=== PATIENT | female | born 1990 | race Hispanic/Latino ===

== ENCOUNTER 2021-12-23 03:15 | Emergency (ER) | payer MEDICAID ==
[2021-12-23] VITALS (10 sets, daily range): BP systolic 97–120; BP diastolic 58–78
[~2021-12-23] VITALS: Ht 154.9 cm; Wt 100.0 kg
[2021-12-23 04:06] LABS: HEMATOCRIT 33.1 % (37.0-47.0); HEMOGLOBIN 11.2 g/dl (12.0-16.0); IMMATURE GRANULOCYTES 0.1 % (0.0-5.0); MEAN CELL VOLUME 97.4 fL CALC (80.0-100.0); MEAN CORPUSCULAR HGB 32.9 pG CALC (26.0-32.0); MEAN CORPUSCULAR HGB CONC 33.8 g/dL CAL (32.0-36.0); NEUT# 5.6 thou/uL (2.00-7.15); RED BLOOD COUNT 3.4 mill/uL (4.20-5.60); RED CELL DISTRI WIDTH 12.5 % (11.5-15.5)
[2021-12-23 04:15] LABS: ALKALINE PHOSPHATASE 57 u/l (38-126); ANION GAP 12 (6-22 (CALC)); BILIRUBIN, TOTAL 0.1 mg/dL (0.0-1.4); BUN 11 mg/dL (7-17); BUN/CREATININE RATIO 15 (12-20 (CALC)); CARBON DIOXIDE 27 mmol/l (22-30); CHLORIDE 102 mmol/l (95-108); CREATININE 0.8 mg/dL (0.5-1.0); GFR FOR AFR.AMER. > 60 ML/MIN (>=60 (CALC)); GFR OTHER RACES > 60 ML/MIN (>=60 (CALC)); POTASSIUM 3.8 mmol/l (3.5-5.1); SGOT/AST 22 u/l (14-36); SODIUM 136 mmol/l (137-146); TOTAL PROTEIN 7.2 g/dL (6.3-8.2)
[2021-12-23 04:18] LABS: D-DIMER 0.51 mg/L (0.19-0.60)
[2021-12-23 04:24] LABS: INTERNATIONAL NORMALIZED RATIO 0.9 RATIO (0.7-1.3); PROTHROMBIN TIME 9.4 SECONDS (9.0-12.5)
[2021-12-23 04:28] LABS: MYOGLOBIN 23 ng/mL (0 - 62)
[2021-12-23] MEDS ORDERED: TORADOL PO (05:11)
== END 2021-12-23 05:30 | disposition home or self-care (01) ==
LOC: ED 03:15
PROVIDERS: Family Medicine
DX: R07.89 Other chest pain (principal)

== ENCOUNTER 2022-02-27 21:06 | Emergency (ER) | payer MEDICAID ==
[~2022-02-27] VITALS: Ht 154.9 cm; Wt 100.0 kg
[~2022-02-27 21:06] MED LIST: TORADOL PO
[2022-02-27 21:44] VITALS: BP 113/71
[2022-02-27 22:32] LABS: URINE BILIRUBIN - DIPSTICK NEGATIVE (NEGATIVE); URINE BLOOD DIPSTICK TRACE-INTACT (NEGATIVE); URINE COLOR YELLOW; URINE GLUCOSE - DIPSTICK NEGATIVE (NEGATIVE); URINE KETONE NEGATIVE (NEGATIVE); URINE LEUK ESTERASE NEGATIVE (NEGATIVE); URINE PROTEIN - DIPSTICK NEGATIVE (NEG-TRACE); URINE SPECIFIC GRAVITY >=1.030; URINE UROBILINOGEN - DIPSTICK 0.2 E.U./dL (0.2)
[2022-02-27 22:33] LABS: URINE NITRITE - DIPSTICK NEGATIVE (Negative)
[2022-02-27 23:46] VITALS: BP 113/71
== END 2022-02-27 23:59 | disposition home or self-care (01) ==
LOC: ED 21:06
PROVIDERS: Emergency Medicine
DX: R20.0 Anesthesia of skin (principal)

== ENCOUNTER 2022-05-15 23:03 | Emergency (ER) | payer MEDICAID | END 2022-05-16 00:30 | disposition left against medical advice (07) | LOC: ED 23:03 → LWOBS 05-16 00:27 → ED 05-16 00:27 | DX: Z53.21 Procedure and treatment not carried out due to patient leaving prior to being seen by health care provider (principal) ==

== ENCOUNTER 2023-12-10 08:18 | Emergency (ER) | payer MEDICAID ==
[~2023-12-10] VITALS: Ht 154.9 cm; Wt 95.2 kg
[2023-12-10] MEDS ORDERED: MECLIZINE HCL 25 MG/TAB PO ONE (08:35)
[2023-12-10 08:52] LABS: BASO% 0.3 % (0-3); EOS% 1.6 % (0-8); HEMATOCRIT 35.4 % (37.0-47.0); IMMATURE GRANULOCYTES 0.2 % (0.0-5.0); LYMPH% 26.1 % (15-41); MEAN CELL VOLUME 97.8 fL CALC (80.0-100.0); MEAN CORPUSCULAR HGB 33.1 pG CALC (26.0-32.0); MEAN CORPUSCULAR HGB CONC 33.9 g/dL CAL (32.0-36.0); MONO% 5.6 % (2-13); NEUT# 3.8 thou/uL (2.00-7.15); NEUT% 66.2 % (42-76); RED BLOOD COUNT 3.62 mill/uL (4.20-5.60); RED CELL DISTRI WIDTH 12.6 % (11.5-15.5)
[2023-12-10 09:08] LABS: ALBUMIN 4.1 g/dL (3.2-5.0); ALKALINE PHOSPHATASE 60 u/l (38-126); ANION GAP 7 (6-22 (CALC)); BUN 8 mg/dL (7-17); BUN/CREATININE RATIO 10 (12-20 (CALC)); CARBON DIOXIDE 24 mmol/l (22-30); CHLORIDE 108 mmol/l (95-108); CREATININE 0.8 mg/dL (0.5-1.0); ESTIMATED GFR 98 ML/MIN (>=90 (CALC)); POTASSIUM 4.1 mmol/l (3.5-5.1); SGOT/AST 25 u/l (14-36); SODIUM 135 mmol/l (137-146); TOTAL PROTEIN 7.5 g/dL (6.3-8.2)
[2023-12-10 09:18] LABS: BILIRUBIN, TOTAL 0.5 mg/dL (0.02-1.3)
[2023-12-10 10:14] VITALS: BP 103/56
== END 2023-12-10 10:29 | disposition home or self-care (01) ==
LOC: ED 08:18
PROVIDERS: Family Medicine
DX: H81.11 Benign paroxysmal vertigo, right ear (principal); E03.9 Hypothyroidism, unspecified; E66.01 Morbid (severe) obesity due to excess calories